=== PATIENT | male | born 1995 | race Caucasian/White ===

== ENCOUNTER 2017-07-03 11:16 | Emergency (ER) | payer OTHER, MEDICAID ==
[2017-07-03 12:14] VITALS: BP 123/73
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
--- NOTE | 2017-07-03 13:21 | RAD ---
INDICATION: Cough x1 month with night sweats COMPARISON: None TECHNIQUE: PA and lateral views of the chest were obtained. FINDINGS: The heart and mediastinum are normal in size and contour. The lungs are grossly clear. There is no evidence of large pleural effusion. Visualized bones are normal for the patient's age. There is no radiographic evidence of free air beneath the diaphragm IMPRESSION: No radiographic evidence of acute cardiopulmonary disease.
== END 2017-07-03 13:48 | disposition home or self-care (01) ==
LOC: UCEAST 11:16
DX: R05 Cough (principal); J30.2 Other seasonal allergic rhinitis; R61 Generalized hyperhidrosis
CPT/HCPCS: 71046; 99212; G0463